=== PATIENT | male | born 1965 | race Two or more races ===

== ENCOUNTER 2022-11-04 13:47 | Emergency (ER) | payer OTHER ==
[~2022-11-04] VITALS: Ht 165.1 cm; Wt 77.1 kg
== END 2022-11-04 19:10 | disposition home or self-care (01) ==
LOC: ER 13:47
DX: S80.01XA Contusion of right knee, initial encounter (principal); W19.XXXA Unspecified fall, initial encounter; Y93.9 Activity, unspecified; Y92.9 Unspecified place or not applicable; Y99.9 Unspecified external cause status